=== PATIENT | female | born 1985 | race Caucasian/White ===

== ENCOUNTER → 2017-11-03 15:52 | Outpatient (CLI) | payer MEDICAID | END | disposition home or self-care (01) | LOC: D.RAD 15:52 | DX: R05 Cough (principal) ==

== ENCOUNTER → 2017-12-01 14:20 | Outpatient (CLI) | payer MEDICARE, MEDICAID ==
[~2017-12-01 14:20] MED LIST: ADDERALL 20 MG20 M1 PO; CELEXA40 MG PO; HYDROCODON-ACE1 EAC7 PO; KLONOPIN1 MG PO; NORVASC10 MG PO; TOPAMAX50 MG PO; TRAZODONE HCL150 MG PO; ZANAFLEX4 MG PO
== END | disposition home or self-care (01) ==
LOC: D.MRI 14:20
DX: S83.511A Sprain of anterior cruciate ligament of right knee, initial encounter (principal); X58.XXXA Exposure to other specified factors, initial encounter

== ENCOUNTER 2017-12-18 06:19 | Outpatient (CLI) | payer MEDICARE, MEDICAID ==
[~2017-12-18] VITALS: Ht 170.2 cm; Wt 116.4 kg
[2017-12-18 06:48] LABS: BASOPHILS 0.2 % (0-2); EOSINOPHILS 3.3 % (0-7); HEMATOCRIT 36.4 % (36.0-48.0); HEMOGLOBIN 13.3 g/dL (12-16); IMMATURE GRANULOCYTES 0.2 % (0-5); LYMPHOCYTES 26.1 % (15-50); MCH 32.5 pg (26.0-34.0); MCHC 36.5 g/dL (31.0-37.0); MEAN PLATELET VOLUME 9.3 fL (7.4-10.4); MONOCYTES 10.1 % (2-11); NEUTROPHILS 60.1 % (40-80); PLATELET COUNT 233 10x3/uL (130-400); RBC 4.09 10x6/uL (4.00-5.40); RDW 12.2 % (11.5-14.5); WBC 6.1 10x3/uL (4.8-10.8)
[2017-12-18 07:04] LABS: INR 1.07 (0.85-1.17); PROTIME 13.5 SECONDS (11.6-15.0)
[2017-12-18 07:05] LABS: APTT 32.1 SECONDS (22.8-39.4)
[2017-12-18 07:13] LABS: ALBUMIN 3.6 g/dL (3.4-5.0); ALKALINE PHOSPHATASE 46 U/L (46-116); ALT (SGPT) 79 U/L (10-68); BILIRUBIN - TOTAL 0.81 mg/dL (0.2-1.3); CALC OSMOLALITY 279 mosm/kg (275-300); CALCIUM 8.8 mg/dL (8.5-10.1); CARBON DIOXIDE 25.3 mmol/L (21.0-32.0); CHLORIDE - SERUM 101 mmol/L (98-107); CREATININE - SERUM 0.7 mg/dL (0.6-1.3); GLUCOSE 121 mg/dL (74-106); PROTEIN - SERUM 7.1 g/dL (6.4-8.2); SODIUM 139 mmol/L (136-145); UREA NITROGEN 15 mg/dL (7-18); eGFR NON AFRICAN AMERICAN > 90 mL/min (90-120)
[2017-12-18 07:22] LABS: POTASSIUM - SERUM 2.7 mmol/L (3.5-5.1)
[2017-12-18 08:01] VITALS: BP 127/74; Ht 170.2 cm; Wt 116.4 kg
== END 2017-12-18 08:30 | disposition home or self-care (01) ==
LOC: D.OPS 06:19 → D.PAN 08:00 → D.OPS 08:30 → D.PAN 08:50 → EDSTATUS 10:15 → D.OPS 10:15 → D.PAN 10:15
PROVIDERS: Anesthesiology
DX: S83.519A Sprain of anterior cruciate ligament of unspecified knee, initial encounter (principal); Z53.9 Procedure and treatment not carried out, unspecified reason; Z01.812 Encounter for preprocedural laboratory examination

== ENCOUNTER 2018-01-11 21:57 | Emergency (ER) | payer MEDICARE, MEDICAID ==
[~2018-01-11] VITALS: Ht 170.2 cm; Wt 81.8 kg
[2018-01-11 22:09] VITALS: Ht 170.2 cm; Wt 81.8 kg
[2018-01-11 23:25] LABS: BASOPHILS 0.1 % (0-2); EOSINOPHILS 2.2 % (0-7); HEMATOCRIT 35.6 % (36.0-48.0); HEMOGLOBIN 12.2 g/dL (12-16); IMMATURE GRANULOCYTES 0.2 % (0-5); LYMPHOCYTES 19.4 % (15-50); MCH 32.1 pg (26.0-34.0); MCHC 34.3 g/dL (31.0-37.0); MCV 93.7 fL (80.0-100.0); MEAN PLATELET VOLUME 9.6 fL (7.4-10.4); MONOCYTES 5.4 % (2-11); NEUTROPHILS 72.7 % (40-80); PLATELET COUNT 197 10x3/uL (130-400); RDW 12.2 % (11.5-14.5)
[2018-01-11 23:35] LABS: ALBUMIN 2.7 g/dL (3.4-5.0); ALKALINE PHOSPHATASE 54 U/L (46-116); ALT (SGPT) 23 U/L (10-68); BILIRUBIN - TOTAL 0.25 mg/dL (0.2-1.3); CALC OSMOLALITY 274 mosm/kg (275-300); CALCIUM 8.7 mg/dL (8.5-10.1); CARBON DIOXIDE 27.3 mmol/L (21.0-32.0); CHLORIDE - SERUM 100 mmol/L (98-107); CREATININE - SERUM 0.8 mg/dL (0.6-1.3); GLUCOSE 127 mg/dL (74-106); POTASSIUM - SERUM 3.5 mmol/L (3.5-5.1); SODIUM 137 mmol/L (136-145); UREA NITROGEN 11 mg/dL (7-18); eGFR NON AFRICAN AMERICAN 88 mL/min (90-120)
[2018-01-12] MEDS ORDERED: CLEOCIN HCL300 MG PO (00:14)
[2018-01-12] MEDS ORDERED: VOLTAREN75 MG PO (00:14)
[2018-01-12 00:26] VITALS: BP 132/97
== END 2018-01-12 00:26 | disposition home or self-care (01) ==
LOC: D.ER 21:57
PROVIDERS: Family Medicine
DX: L03.114 Cellulitis of left upper limb (principal); F17.200 Nicotine dependence, unspecified, uncomplicated

== ENCOUNTER 2018-06-29 07:55 | Day surgery (SDC) | payer MEDICARE, MEDICAID ==
[~2018-06-29] VITALS: Ht 170.2 cm; Wt 129.7 kg
[~2018-06-29 07:55] MED LIST changes: +CLEOCIN HCL300 MG PO; +FLOMAX0.4 MG PO; +KEFLEX500 MG; +ULTRAM50 MG PO; +VOLTAREN75 MG PO; +ZYPREXA20 MG PO; +[UNRECOGNIZED DRUG - OTHER] PO
[2018-06-29 09:52] VITALS: BP 124/83; Ht 170.2 cm; Wt 129.7 kg
[2018-06-29 10:13] LABS: HEMATOCRIT 40.2 % (36.0-48.0); HEMOGLOBIN 14.2 g/dL (12-16); MCH 32.3 pg (26.0-34.0); MCHC 35.3 g/dL (31.0-37.0); MCV 91.6 fL (80.0-100.0); MEAN PLATELET VOLUME 9.7 fL (7.4-10.4); RBC 4.39 10x6/uL (4.00-5.40); WBC 6.6 10x3/uL (4.8-10.8)
[2018-06-29] MEDS ORDERED: HYDROCODON-ACE1 EA10 PO (13:54)
--- NOTE | 2018-06-29 16:22 | NUR ---
1515 IV REMOVED AND PRESSURE HELD. ASSISTED TO BATHROOM WITH WALKER. PT DID VERY WELL AND VOIDED ON TOILET. BRACE INTACT AND SET. PULSES PALP. FOOT WARM.
[2018-06-29 21:11] LABS: HIV 1 & 2- RAPID SCREEN NEGATIVE (NEGATIVE)
--- NOTE | 2018-07-06 07:51 | OP ---
PATIENT NAME: YANCY DICKENS MEDICAL RECORD: [id number] :85 LOCATION:[facility] ADMISSION DATE: SURGEON: LYRIC DURON MD DATE OF OPERATION: 06/29/2018 PREOPERATIVE DIAGNOSIS: Anterior cruciate ligament reconstruction failure. POSTOPERATIVE DIAGNOSIS: Anterior cruciate ligament reconstruction failure. PROCEDURE: Revision ACL reconstruction. SURGEON: Lyric Duron MD ANESTHESIA: General. INTRAOPERATIVE COMPLICATIONS: None. SUMMARY OF PATHOLOGIC FINDINGS: The patient was indeed found to have a very lax ACL with a 2+ anterior drawer both on preoperative examination as well as arthroscopic examination of the previously placed ligamentous rastafari done with the patient's own hamstring had failed and rendered the patient unstable. Fortunately, the patient had a paucity of chondromalacia as well as no meniscal pathology and overall the knee looked very nice. OPERATIVE SUMMARY IN DETAIL: After obtaining the appropriate preoperative orthopedic surgery consent as well as anesthetic consultation, evaluation, and clearance, the patient was placed on the operating table in the supine position. After general laryngeal mask airway was administered, tourniquet was placed about the proximal aspect of the right lower extremity. Right lower extremity was then prepped and draped in routine sterile fashion. The leg was elevated and exsanguinated, tourniquet inflated to 350 mmHg. Routine inferolateral and superolateral portals were established, followed by superomedial portal was established, followed by inferomedial portal. Diagnostic arthroscopy did reveal the above findings. Again, examination and the arthroscopic findings showed the patient had a 2+ anterior drawer sign. The previously placed anterior cruciate ligament autograft was removed and notchplasty was performed substantially in this type A notch. Having completed the notchplasty and the entire examination of the knee with findings as noted above, attention was turned to the ACL implantation, a #11 reamer was used to create the tibial tunnel using the Arthrex system. A low profile #11 was also used to create the tibial tunnel after the spade tip Beath pin was utilized with tunnels both in place, the Beath pin was then utilized to thread a guide stitch. The guide stitch was then utilized to pull through the tails of the size #10, precut [id number] allograft with the TightRope placed. It was seated nicely into the tibia as well as the femoral component. The TightRope was then deployed to the lateral cortex of the femur. The graft was then held in place with the knee was ranged several times for graft seating. The distal aspect of the graft was held in place with a transcortical tibial post from Arthrex. This was tied into place and tension and then again was ranged several times, the knee was then found to have a negative Lang, negative pivot shift, and no anterior drawer. Incisions and arthroscopic portals were closed in the usual fashion. Sterile dressings were applied. A knee immobilizer applied. Tourniquet was deflated. OPERATIVE REPORT [id number] YANCY DICKENS The patient was awakened, taken to the recovery room in stable condition. All final needle and sponge counts were correct. TRANSINT:[id number] Voice Confirmation ID: [id number] DOCUMENT ID: [id number] OLIVERIO MALAGON, LYRIC MARSH at 0751 CC: [id number] DICTATION DATE: 07/03/18 1300 STAY CUTTER: 07/03/[address] [facility] [facility] [place] 06/29/18 [id number] [place] [address]
== END 2018-06-29 15:55 | disposition home or self-care (01) ==
LOC: D.OPS 07:55 → D.PAN 14:00 → D.OPS 15:55
PROVIDERS: ATTEND Orthopaedic Surgery
DX: S83.511A Sprain of anterior cruciate ligament of right knee, initial encounter (principal); X58.XXXA Exposure to other specified factors, initial encounter

== ENCOUNTER 2018-08-14 21:08 | Emergency (ER) | payer MEDICARE, MEDICAID ==
[~2018-08-14] VITALS: Ht 170.2 cm; Wt 132.7 kg
[~2018-08-14 21:08] MED LIST changes: +HYDROCODON-ACE1 EA10 PO
[2018-08-14 21:19] VITALS: Ht 170.2 cm; Wt 132.7 kg
[2018-08-14] MEDS ORDERED: THORAZINE10 MG PO (21:22)
[2018-08-14] MEDS ORDERED: RISPERDAL1 MG PO (21:22)
[2018-08-14] MEDS ORDERED: NEURONTIN 300300 MG PO (21:23)
[2018-08-14] MEDS ORDERED: THORAZINE25 MG PO (21:23)
[2018-08-14] MEDS ORDERED: RISPERDAL2 MG PO (21:24)
[2018-08-14 21:43] LABS: BASOPHILS 0 % (0-2); EOSINOPHILS 0 % (0-7); HEMATOCRIT 38.6 % (36.0-48.0); HEMOGLOBIN 13.4 g/dL (12-16); IMMATURE GRANULOCYTES 0.3 % (0-5); MCH 31.5 pg (26.0-34.0); MCHC 34.7 g/dL (31.0-37.0); MCV 90.6 fL (80.0-100.0); MEAN PLATELET VOLUME 9.3 fL (7.4-10.4); MONOCYTES 6.7 % (2-11); PLATELET COUNT 200 10x3/uL (130-400); RBC 4.26 10x6/uL (4.00-5.40); WBC 6.7 10x3/uL (4.8-10.8)
[2018-08-14 21:58] LABS: ALBUMIN 3.4 g/dL (3.4-5.0); ALKALINE PHOSPHATASE 78 U/L (46-116); ALT (SGPT) 44 U/L (10-68); BILIRUBIN - TOTAL 0.14 mg/dL (0.2-1.3); CALC OSMOLALITY 277 mosm/kg (275-300); CALCIUM 8.8 mg/dL (8.5-10.1); CARBON DIOXIDE 25.2 mmol/L (21.0-32.0); CHLORIDE - SERUM 105 mmol/L (98-107); CREATININE - SERUM 0.9 mg/dL (0.6-1.3); GLUCOSE 123 mg/dL (74-106); POTASSIUM - SERUM 3.8 mmol/L (3.5-5.1); PROTEIN - SERUM 7.2 g/dL (6.4-8.2); SODIUM 139 mmol/L (136-145); UREA NITROGEN 11 mg/dL (7-18); eGFR NON AFRICAN AMERICAN 77 mL/min (90-120)
[2018-08-14 22:03] LABS: PRO BNP 35 pg/mL (0-125)
[2018-08-14 22:48] LABS: APPEARANCE CLEAR (CLEAR); BILIRUBIN NEGATIVE (NEGATIVE); COLOR YELLOW (YELLOW); GLUCOSE NEGATIVE (NEGATIVE); KETONE NEGATIVE (NEGATIVE); NITRITE NEGATIVE (NEGATIVE); PROTEIN NEGATIVE (NEGATIVE); UROBILINOGEN NORMAL (NORMAL)
[2018-08-15] MEDS ORDERED: FUROSEMIDE20 MG PO (00:09)
[2018-08-15 00:29] VITALS: BP 107/67
== END 2018-08-15 00:28 | disposition home or self-care (01) ==
LOC: D.ER 21:08
PROVIDERS: Family Medicine
DX: R60.0 Localized edema (principal); T50.995A Adverse effect of other drugs, medicaments and biological substances, initial encounter

== ENCOUNTER 2018-08-21 13:33 | Emergency (ER) | payer MEDICARE, MEDICAID ==
[~2018-08-21 13:33] MED LIST changes: +FUROSEMIDE20 MG PO; +NEURONTIN 300300 MG PO; +RISPERDAL1 MG PO; +RISPERDAL2 MG PO; +THORAZINE10 MG PO; +THORAZINE25 MG PO
[2018-08-21 13:38] VITALS: BMI 46.6
[2018-08-21 14:29] LABS: BASOPHILS 0 % (0-2); EOSINOPHILS 0 % (0-7); HEMATOCRIT 44.5 % (36.0-48.0); HEMOGLOBIN 16.1 g/dL (12-16); IMMATURE GRANULOCYTES 0.3 % (0-5); LYMPHOCYTES 25.8 % (15-50); MCH 31.9 pg (26.0-34.0); MCHC 36.2 g/dL (31.0-37.0); MCV 88.3 fL (80.0-100.0); MEAN PLATELET VOLUME 9.6 fL (7.4-10.4); MONOCYTES 5.7 % (2-11); NEUTROPHILS 68.2 % (40-80); RBC 5.04 10x6/uL (4.00-5.40); RDW 12.1 % (11.5-14.5); WBC 10.4 10x3/uL (4.8-10.8)
[2018-08-21 14:30] LABS: PLATELET COUNT 313 10x3/uL (130-400)
[2018-08-21 14:46] LABS: ALBUMIN 4.3 g/dL (3.4-5.0); ANION GAP 15.1 mmol/L (8-16); BILIRUBIN - TOTAL 0.7 mg/dL (0.2-1.3); CALCIUM 9.6 mg/dL (8.5-10.1); CARBON DIOXIDE 24.6 mmol/L (21.0-32.0); CREATININE - SERUM 1.3 mg/dL (0.6-1.3); POTASSIUM - SERUM 3.7 mmol/L (3.5-5.1); PROTEIN - SERUM 8.7 g/dL (6.4-8.2)
[2018-08-21 15:01] LABS: APPEARANCE HAZY (CLEAR); BILIRUBIN NEGATIVE (NEGATIVE); COLOR YELLOW (YELLOW); GLUCOSE NEGATIVE (NEGATIVE); KETONE NEGATIVE (NEGATIVE); NITRITE NEGATIVE (NEGATIVE); PROTEIN NEGATIVE (NEGATIVE); SPECIFIC GRAVITY 1.015 (1.005-1.020); UROBILINOGEN NORMAL (NORMAL)
[2018-08-21 15:02] LABS: BACTERIA MANY /hpf (NONE SEEN); EPITHELIAL CELLS 0-5 /hpf (0-5); WHITE CELLS - URINE 0-5 /hpf (0-5)
[2018-08-21 15:28] LABS: UDS - AMPHET POSITIVE QUAL (NEGATIVE); UDS - BARB NEGATIVE QUAL (NEGATIVE); UDS - BENZO NEGATIVE QUAL (NEGATIVE); UDS - COCAINE NEGATIVE QUAL (NEGATIVE); UDS - OPIATE POSITIVE QUAL (NEGATIVE); UDS - PCP NEGATIVE QUAL (NEGATIVE); UDS - THC POSITIVE QUAL (NEGATIVE)
[2018-08-21] MEDS ORDERED: FLAGYL500 MG PO (15:48)
[2018-08-21 18:46] VITALS: BP 138/86
== END 2018-08-21 18:47 | disposition home or self-care (01) ==
LOC: D.ER 13:33
PROVIDERS: Emergency Medicine
DX: R10.32 Left lower quadrant pain (principal); N76.0 Acute vaginitis; F17.200 Nicotine dependence, unspecified, uncomplicated

== ENCOUNTER 2019-01-21 19:17 | Emergency (ER) | payer MEDICARE, MEDICAID ==
[~2019-01-21] VITALS: Ht 167.6 cm; Wt 102.3 kg
[~2019-01-21 19:17] MED LIST changes: +FLAGYL500 MG PO
[2019-01-21 19:22] VITALS: Ht 167.6 cm; Wt 102.3 kg
[2019-01-21] MEDS ORDERED: ATIVAN0.5 MG PO (21:52)
[2019-01-21] MEDS ORDERED: ZOFRAN8 MG PO (21:52)
[2019-01-21 22:30] VITALS: BP 127/67
[2019-01-22] MEDS ORDERED: LOMOTIL 2.5-0.1 EAC1 PO (09:22)
== END 2019-01-21 22:30 | disposition home or self-care (01) ==
LOC: D.ER 19:17
DX: F41.9 Anxiety disorder, unspecified (principal); A05.9 Bacterial foodborne intoxication, unspecified; G62.9 Polyneuropathy, unspecified

== ENCOUNTER 2019-01-22 08:27 | Emergency (ER) | payer MEDICARE, MEDICAID ==
[~2019-01-22] VITALS: Ht 167.6 cm; Wt 110.0 kg
[~2019-01-22 08:27] MED LIST changes: +ATIVAN0.5 MG PO; +ZOFRAN8 MG PO
[2019-01-22 08:34] VITALS: Ht 167.6 cm; Wt 110.0 kg
[2019-01-22] MEDS ORDERED: LOMOTIL 2.5-0.1 EAC1 PO (09:22)
[2019-01-22 10:01] VITALS: BP 105/45
== END 2019-01-22 10:01 | disposition home or self-care (01) ==
LOC: D.ER 08:27
DX: R11.10 Vomiting, unspecified (principal); R19.7 Diarrhea, unspecified; Z87.442 Personal history of urinary calculi

== ENCOUNTER 2019-05-15 19:12 | Emergency (ER) | payer MEDICARE ==
[~2019-05-15] VITALS: Ht 167.6 cm; Wt 95.5 kg
[~2019-05-15 19:12] MED LIST changes: +LOMOTIL 2.5-0.1 EAC1 PO
[2019-05-15 19:22] VITALS: Ht 167.6 cm; Wt 95.5 kg
[2019-05-15] MEDS ORDERED: DIAMOX250 MG PO (19:25)
[2019-05-15] MEDS ORDERED: OMEPRAZOLE20 M1 PO (19:25)
[2019-05-15] MEDS ORDERED: NEURONTIN 300300 MG PO (19:26)
[2019-05-15] MEDS ORDERED: SEROQUEL100 MG PO (19:27)
[2019-05-15] MEDS ORDERED: LEXAPRO20 MG PO ×2 (19:27→19:28)
[2019-05-15] MEDS ORDERED: AMBIEN5 MG PO (19:28)
[2019-05-15 19:50] LABS: UDS - AMPHET NEGATIVE QUAL (NEGATIVE); UDS - BARB NEGATIVE QUAL (NEGATIVE); UDS - BENZO POSITIVE QUAL (NEGATIVE); UDS - COCAINE NEGATIVE QUAL (NEGATIVE); UDS - OPIATE NEGATIVE QUAL (NEGATIVE); UDS - PCP NEGATIVE QUAL (NEGATIVE); UDS - THC POSITIVE QUAL (NEGATIVE)
[2019-05-15 19:51] LABS: GLUCOSE NEGATIVE (NEGATIVE); KETONE NEGATIVE (NEGATIVE); NITRITE NEGATIVE (NEGATIVE); UROBILINOGEN NORMAL (NORMAL)
[2019-05-15 19:52] LABS: BILIRUBIN NEGATIVE (NEGATIVE)
[2019-05-15 19:54] LABS: HCG URINE NEGATIVE (NEGATIVE)
[2019-05-15 20:23] LABS: BASOPHILS 0.1 % (0-2); EOSINOPHILS 0.3 % (0-7); HEMATOCRIT 43.5 % (36.0-48.0); HEMOGLOBIN 15.1 g/dL (12-16); IMMATURE GRANULOCYTES 0.6 % (0-5); LYMPHOCYTES 17.3 % (15-50); MCH 31.1 pg (26.0-34.0); MCHC 34.7 g/dL (31.0-37.0); MCV 89.7 fL (80.0-100.0); MEAN PLATELET VOLUME 10.5 fL (7.4-10.4); NEUTROPHILS 75.7 % (40-80); PLATELET COUNT 239 10x3/uL (130-400); RBC 4.85 10x6/uL (4.00-5.40); RDW 11.7 % (11.5-14.5); WBC 10.7 10x3/uL (4.8-10.8)
[2019-05-15 20:28] LABS: CALC OSMOLALITY 270 mosm/kg (275-300); CARBON DIOXIDE 20.3 mmol/L (21.0-32.0); CHLORIDE - SERUM 104 mmol/L (98-107); CREATININE - SERUM 0.8 mg/dL (0.6-1.3); GLUCOSE 103 mg/dL (74-106); POTASSIUM - SERUM 3.1 mmol/L (3.5-5.1); SODIUM 136 mmol/L (136-145); UREA NITROGEN 10 mg/dL (7-18); eGFR NON AFRICAN AMERICAN 87 mL/min (90-120)
[2019-05-15 20:45] LABS: ALBUMIN 3.6 g/dL (3.4-5.0); ALKALINE PHOSPHATASE 66 U/L (30-120); ALT (SGPT) 50 U/L (10-68); BILIRUBIN - TOTAL 0.46 mg/dL (0.2-1.3); C-REACTIVE PROTEIN 2.2 mg/dL (0.0-0.9); LIPASE 266 U/L (73-393); PROTEIN - SERUM 7.4 g/dL (6.4-8.2); THYROID STIMULATING HORMONE 1.15 uIU/mL (0.36-3.74)
[2019-05-15 22:51] VITALS: BP 132/71
== END 2019-05-15 22:52 | disposition home or self-care (01) ==
LOC: D.ER 19:12
PROVIDERS: Family Medicine
DX: R10.13 Epigastric pain (principal); E87.6 Hypokalemia; I10 Essential (primary) hypertension; M54.9 Dorsalgia, unspecified

== ENCOUNTER 2019-05-18 16:59 | Emergency (ER) | payer MEDICARE ==
[~2019-05-18] VITALS: Ht 167.6 cm; Wt 90.0 kg
[~2019-05-18 16:59] MED LIST changes: +AMBIEN5 MG PO; +DIAMOX250 MG PO; +LEXAPRO20 MG PO; +OMEPRAZOLE20 M1 PO; +SEROQUEL100 MG PO
[2019-05-18 17:17] VITALS: BP 132/85; Ht 167.6 cm; Wt 90.0 kg
[2019-05-18 17:38] LABS: BASOPHILS 0.1 % (0-2); EOSINOPHILS 0.2 % (0-7); HEMATOCRIT 45.5 % (36.0-48.0); HEMOGLOBIN 15.1 g/dL (12-16); IMMATURE GRANULOCYTES 0.3 % (0-5); LYMPHOCYTES 10.8 % (15-50); MCH 31.3 pg (26.0-34.0); MCHC 33.2 g/dL (31.0-37.0); MCV 94.2 fL (80.0-100.0); MEAN PLATELET VOLUME 9.6 fL (7.4-10.4); MONOCYTES 2.8 % (2-11); NEUTROPHILS 85.8 % (40-80); RBC 4.83 10x6/uL (4.00-5.40); RDW 12.1 % (11.5-14.5)
[2019-05-18 17:45] LABS: PLATELET COUNT 296 10x3/uL (130-400)
[2019-05-18 17:58] LABS: CALC OSMOLALITY 274 mosm/kg (275-300); CALCIUM 8.8 mg/dL (8.5-10.1); CARBON DIOXIDE 22.1 mmol/L (21.0-32.0); CHLORIDE - SERUM 104 mmol/L (98-107); CREATININE - SERUM 0.8 mg/dL (0.6-1.3); GLUCOSE 104 mg/dL (74-106); POTASSIUM - SERUM 3.3 mmol/L (3.5-5.1); SODIUM 138 mmol/L (136-145); UREA NITROGEN 10 mg/dL (7-18); eGFR NON AFRICAN AMERICAN 87 mL/min (90-120)
[2019-05-18 18:09] LABS: ALBUMIN 3.9 g/dL (3.4-5.0); ALKALINE PHOSPHATASE 76 U/L (30-120); ALT (SGPT) 27 U/L (10-68); AMYLASE - SERUM 69 U/L (25-115); BILIRUBIN - TOTAL 0.22 mg/dL (0.2-1.3); LIPASE 349 U/L (73-393); PROTEIN - SERUM 8.4 g/dL (6.4-8.2); TROPONIN-I < 0.017 ng/mL (0.000-0.060)
[2019-05-18 18:59] LABS: UDS - AMPHET NEGATIVE QUAL (NEGATIVE); UDS - BARB NEGATIVE QUAL (NEGATIVE); UDS - BENZO NEGATIVE QUAL (NEGATIVE); UDS - COCAINE NEGATIVE QUAL (NEGATIVE); UDS - OPIATE NEGATIVE QUAL (NEGATIVE); UDS - PCP NEGATIVE QUAL (NEGATIVE); UDS - THC POSITIVE QUAL (NEGATIVE)
[2019-05-18 19:19] LABS: BACTERIA FEW /hpf (NEGATIVE); BILIRUBIN NEGATIVE (NEGATIVE); GLUCOSE NEGATIVE (NEGATIVE); KETONE NEGATIVE (NEGATIVE); NITRITE NEGATIVE (NEGATIVE); RED CELLS - URINE OCC /hpf (0-5); UROBILINOGEN NORMAL (NORMAL); WHITE CELLS - URINE 0-5 /hpf (NEGATIVE)
[2019-05-18] MEDS ORDERED: ZOFRAN4 MG PO (19:19)
== END 2019-05-18 19:33 | disposition home or self-care (01) ==
LOC: D.ER 16:59
PROVIDERS: Family Medicine
DX: R11.2 Nausea with vomiting, unspecified (principal); R10.9 Unspecified abdominal pain

== ENCOUNTER 2019-09-04 14:01 | Emergency (ER) | payer MEDICARE ==
[~2019-09-04] VITALS: Ht 167.6 cm; Wt 90.0 kg
[~2019-09-04 14:01] MED LIST changes: +ZOFRAN4 MG PO
[2019-09-04 14:02] VITALS: Ht 167.6 cm; Wt 90.0 kg
[2019-09-04 15:50] LABS: BASOPHILS 0.1 % (0-2); EOSINOPHILS 1.2 % (0-7); HEMOGLOBIN 12.1 g/dL (12-16); IMMATURE GRANULOCYTES 0.3 % (0-5); LYMPHOCYTES 26.9 % (15-50); MCH 31.7 pg (26.0-34.0); MCHC 32.7 g/dL (31.0-37.0); MCV 96.9 fL (80.0-100.0); MEAN PLATELET VOLUME 9.1 fL (7.4-10.4); MONOCYTES 5.5 % (2-11); RBC 3.82 10x6/uL (4.00-5.40); RDW 12.1 % (11.5-14.5); WBC 7.6 10x3/uL (4.8-10.8)
[2019-09-04 15:57] LABS: PLATELET COUNT 192 10x3/uL (130-400)
[2019-09-04 15:59] LABS: APTT 29.5 SECONDS (22.8-39.4); INR 0.98 (0.85-1.17); PROTIME 12.9 SECONDS (11.6-15.0)
[2019-09-04 16:05] LABS: BILIRUBIN NEGATIVE (NEGATIVE); GLUCOSE NEGATIVE (NEGATIVE); KETONE NEGATIVE (NEGATIVE); NITRITE NEGATIVE (NEGATIVE); SPECIFIC GRAVITY 1.005 (1.005-1.020); UROBILINOGEN NORMAL (NORMAL)
[2019-09-04 16:06] LABS: CALC OSMOLALITY 282 mosm/kg (275-300); CALCIUM 8.2 mg/dL (8.5-10.1); CARBON DIOXIDE 29.9 mmol/L (21.0-32.0); CHLORIDE - SERUM 107 mmol/L (98-107); CREATININE - SERUM 0.8 mg/dL (0.6-1.3); GLUCOSE 93 mg/dL (74-106); POTASSIUM - SERUM 3.3 mmol/L (3.5-5.1); SODIUM 142 mmol/L (136-145); UREA NITROGEN 12 mg/dL (7-18); eGFR NON AFRICAN AMERICAN 87 mL/min (90-120)
[2019-09-04 16:10] LABS: ALBUMIN 2.9 g/dL (3.4-5.0); ALKALINE PHOSPHATASE 38 U/L (30-120); ALT (SGPT) 46 U/L (10-68); BILIRUBIN - TOTAL 0.36 mg/dL (0.2-1.3); PROTEIN - SERUM 5.8 g/dL (6.4-8.2)
[2019-09-04 16:12] LABS: UDS - AMPHET POSITIVE QUAL (NEGATIVE); UDS - BARB NEGATIVE QUAL (NEGATIVE); UDS - BENZO NEGATIVE QUAL (NEGATIVE); UDS - COCAINE NEGATIVE QUAL (NEGATIVE); UDS - OPIATE NEGATIVE QUAL (NEGATIVE); UDS - PCP NEGATIVE QUAL (NEGATIVE); UDS - THC POSITIVE QUAL (NEGATIVE)
[2019-09-04 20:40] VITALS: BP 122/71
== END 2019-09-05 03:43 | disposition home or self-care (01) ==
LOC: D.ER 14:01
PROVIDERS: Family Medicine
DX: F15.10 Other stimulant abuse, uncomplicated (principal); V89.2XXA Person injured in unspecified motor-vehicle accident, traffic, initial encounter; Y93.9 Activity, unspecified; Y92.9 Unspecified place or not applicable; M79.641 Pain in right hand; M25.512 Pain in left shoulder

== ENCOUNTER 2019-10-28 19:57 | Emergency (ER) | payer MEDICARE ==
[~2019-10-28] VITALS: Ht 167.6 cm; Wt 63.5 kg
[2019-10-28 20:14] VITALS: BP 112/77; Ht 167.6 cm; Wt 63.5 kg
[2019-10-28 20:30] LABS: BASOPHILS 0.2 % (0-2); EOSINOPHILS 2.3 % (0-7); HEMATOCRIT 36.5 % (36.0-48.0); HEMOGLOBIN 12.3 g/dL (12-16); IMMATURE GRANULOCYTES 0.2 % (0-5); LYMPHOCYTES 40.6 % (15-50); MCH 31.7 pg (26.0-34.0); MCHC 33.7 g/dL (31.0-37.0); MCV 94.1 fL (80.0-100.0); MEAN PLATELET VOLUME 9.9 fL (7.4-10.4); MONOCYTES 5.8 % (2-11); NEUTROPHILS 50.9 % (40-80); PLATELET COUNT 164 10x3/uL (130-400); RBC 3.88 10x6/uL (4.00-5.40); RDW 11.9 % (11.5-14.5); WBC 5.2 10x3/uL (4.8-10.8)
[2019-10-28 20:46] LABS: BILIRUBIN NEGATIVE (NEGATIVE); KETONE NEGATIVE (NEGATIVE); NITRITE NEGATIVE (NEGATIVE); UROBILINOGEN NORMAL mg/dL (< 2)
[2019-10-28 20:47] LABS: CALC OSMOLALITY 283 mosm/kg (275-300); CALCIUM 8.7 mg/dL (8.5-10.1); CARBON DIOXIDE 28.6 mmol/L (21.0-32.0); CHLORIDE - SERUM 105 mmol/L (98-107); CREATININE - SERUM 0.7 mg/dL (0.6-1.3); GLUCOSE 96 mg/dL (74-106); POTASSIUM - SERUM 3.4 mmol/L (3.5-5.1); SODIUM 142 mmol/L (136-145); UREA NITROGEN 15 mg/dL (7-18); eGFR NON AFRICAN AMERICAN > 90 mL/min (90-120)
[2019-10-28 20:53] LABS: ALBUMIN 3.2 g/dL (3.4-5.0); ALKALINE PHOSPHATASE 58 U/L (30-120); ALT (SGPT) 15 U/L (10-68); BILIRUBIN - TOTAL 0.23 mg/dL (0.2-1.3); MAGNESIUM - SERUM 2.2 mg/dL (1.8-2.4); PROTEIN - SERUM 7.9 g/dL (6.4-8.2)
[2019-10-28 20:55] LABS: UDS - AMPHET POSITIVE QUAL (NEGATIVE); UDS - BARB NEGATIVE QUAL (NEGATIVE); UDS - BENZO NEGATIVE QUAL (NEGATIVE); UDS - COCAINE NEGATIVE QUAL (NEGATIVE); UDS - OPIATE NEGATIVE QUAL (NEGATIVE); UDS - PCP NEGATIVE QUAL (NEGATIVE); UDS - THC POSITIVE QUAL (NEGATIVE)
[2019-10-28 21:36] LABS: HCG SERUM NEGATIVE (NEGATIVE)
[2019-10-28] MEDS ORDERED: BACTRIM DS TAB1 EAC1 PO (22:06)
== END 2019-10-28 23:52 | disposition home or self-care (01) ==
LOC: D.ER 19:57
PROVIDERS: Family Medicine
DX: L02.611 Cutaneous abscess of right foot (principal); F15.10 Other stimulant abuse, uncomplicated